=== PATIENT | female | born 1985 | race Caucasian/White ===

== ENCOUNTER 2018-07-18 05:33 | Inpatient (IN) ==
--- NOTE | 2018-07-13 08:55 | PAT Medication Instructions ---
Medication Instructions Date of Service July 13, 2018 Home Medications [id number] fumarate-FA 1 tab PO QAM ferrous sulfate [iron] 325 mg PO DAILY DO NOT take the morning of surgery [id number] fumarate-FA 1 tab PO QAM ferrous sulfate [iron] 325 mg PO DAILY Other Notes If you have any questions please call us at [phone] or [phone] or [phone] or [phone]
--- NOTE | 2018-07-13 09:49 | Anesthesiology Consultation ---
Date of Service July 13, 2018 Assessment & Plan (1) Encounter for pre-operative examination: Plan: No labs to be drawn at PAT per OB; labs to be drawn AM DOS. Chart Review Chart Review: Acceptable Risk for Surgery (PENDING LABS AM DOS) and Patient seen in Pre Admission Testing Teaching & Discussion Pre-Anesthesia Teaching/Discussion Notes: Instructed NPO after midnight before surgery,except medications with 15 cc of water. Medication instructions provided according to the [facility] guidelines. History Surgery Operation Date: 07/18/18 07:30 Proposed Procedures p Section in LD - Benja Wright MD Height/Weight Height: 6 ft Weight: 107.4 kg Allergies Allergy/AdvReac Type Severity Reaction Status Date / Time nut - unspecified Allergy Severe Anaphylaxis Verified 06/30/18 15:11 morphine AdvReac Nausea Verified 07/13/18 10:19 Medications Home Medications Medication Instructions Recorded Confirmed Last Taken [id number] fumarate-FA 1 tab PO QAM 06/30/18 06/30/18 Unknown [] ferrous sulfate [iron] 325 mg PO DAILY 06/30/18 06/30/18 Unknown Past Medical History Medical History Anemia IRON DEFICIENCY Kidney stones Past Surgical History Surgical History History of section 07/02 BREECH PRESENTATION= SAB WITH GOOD PAIN CONTROL History of lithotripsy Past Anesthesia History No Hx of Anesthesia Complications and No Family Hx of Anesthesia Complications History of PONV No Motion Sickness Screening History of Motion Sickness: Yes (OCCASOINALLY) Social History Smoking Status: Former smoker tobacco type: cigarettes Do You Dip or Chew Tobacco: No Smoking End Date: QUIT 2014 Hx Alcohol Use: No Hx Substance Use: No substance use type: does not use Exercise / Class Metabolic Activity III < 4 Walking/Shop/Light housework Review of Systems Acid reflux ( related). Patient denies chest pain, shortness of breath , cough, wheezing, palpitations. Physical Exam Vital Signs VITALS BP 111/76 P 80 TEMP97.8 SP02 97%RA RESP 18 PHYSICAL Full neck and c-spine range of motion. Full TMJ range of motion. TMD 3.5 finger breaths Mallampati Score 2 Dentition: intact Lungs: clear throughout to auscultation Cardiac: regular rate and rhythm, no murmurs noted Spine: normal Extremities: no edema
--- NOTE | 2018-07-17 20:11 | History and Physical Report ---
DATE OF ADMISSION: 07/18/2018 REASON FOR ADMISSION: Planned repeat section. HISTORY OF PRESENT ILLNESS: Edward is a 33-year-old G3, P2-0-0-2 with surgery planned at 39 weeks 2 days gestational age with an DAWNA of 07/23/2018. The patient presents to labor and delivery for planned repeat section with history of x1. At the time of evaluation for preoperative planning, the patient was denying regular contractions, bleeding, or leakage of fluids and reporting normal movement. COURSE: The patient presented for care at approximately 17 weeks' gestational age. She has been normotensive throughout. She has had negative proteinuria and negative glucosuria. Total weight gain for the has been 24 pounds. Her management options for delivery were discussed including a trial of labor after versus repeat section. The patient opted for repeat section and tubal ligation. COMPLICATIONS: 1. History of x1. 2. Desired permanent sterilization. LABORATORIES: Blood type A positive, antibody screen negative, rubella immune, RPR nonreactive, hep B surface antigen negative, HIV negative, chlamydia negative, gonorrhea negative. Cystic fibrosis screening negative. Both 16- and 18-week glucose screening normal. There was noted to be an anatomy scan, which was within normal limits. Cell free DNA was normal. GBS is negative. PAST MEDICAL HISTORY: 1. Depression, anxiety. 2. History of kidney stones. 3. Asthma. PAST SURGICAL HISTORY: 1. x1. 2. Lithotripsy. FAMILY HISTORY: Noncontributory. ALLERGIES: The patient denies any medication allergies. MEDICATIONS: 1. vitamins. 2. Iron. 3. Tylenol. PHYSICAL EXAMINATION: VITAL SIGNS: Blood pressure 110/80. GENERAL: Edward is well appearing in no acute distress, alert, oriented x3. HEART: Showed regular rate and rhythm. LUNGS: Showed no labored breathing. ABDOMEN: Soft, nontender, gravid with a fundal height of 39 cm. Fetus is cephalic by Maulik's. heart rate was obtained at 140 beats per minute. LOWER EXTREMITIES: Showed mild trace edema but otherwise unremarkable. ASSESSMENT: Edward is a 33-year-old 3, para 2-0-0-2, presents for scheduled repeat section with history of one prior section. PLAN: 1. Fetus reassuring today on exam. 2. Repeat section. consents were reviewed and signed in the clinic today. Risks of surgery were discussed in detail. The patient does desire bilateral tubal ligation. It was discussed that if a tubal ligation was done that she would have to assume she would not be able to have any more children, which the patient was desiring. We did also, however, discuss that there is still a risk of being approximately 1 in 400 per year as well as risk of ectopic . consents were reviewed and signed. 3. Vitals within normal limits. 4. GBS negative. 5. A hemorrhage risk considered moderate risk. We will collect CBC, type and screen on admission.
[2018-07-18] MEDS ORDERED: LACTATED RINGER'S 1,000 ML IV SCH ×2 (06:00→20:00)
[2018-07-18] MEDS ORDERED: CEFAZOLIN 3,000 MG in DEXTROSE 5% 50 ML IV SCH (06:00)
[2018-07-18 06:22] LABS: Basophils # (auto) 0.02 K/uL (0-0.2); Basophils % (auto) 0.2 %; Eosinophils # (auto) 0.12 K/uL (0-0.5); Eosinophils % (auto) 1.4 %; Immature Granulocytes # (auto) 0.08 K/uL (0.00-0.02); Immature Granulocytes % (auto) 0.9 %; Lymphocytes # (auto) 1.94 K/uL (1.2-3.4); Lymphocytes % (auto) 22.9 %; Mean Corpuscular Hgb Conc 32.4 g/dL (32-36); Mean Corpuscular Volume 84.5 fL (80-100); Mean Platelet Volume 10.9 fL (7.4-10.4); Monocytes # (auto) 1.08 K/uL (0.11-0.59); Monocytes % (auto) 12.8 %; Neutrophils # (auto) 5.23 K/uL (1.4-6.5); Neutrophils % (auto) 61.8 %; Platelet Count 237 K/uL (130-400); RDW Coefficient of Variation 14.4 % (11.5-14.5); RDW Standard Deviation 44.6 fL (36.4-46.3); Red Blood Count 4.38 M/uL (4.2-5.4); White Blood Count 8.47 K/uL (4.8-10.8)
[2018-07-18] MEDS ORDERED: OXYTOCIN 10 UNITS/ML VIAL ONE (06:59)
[2018-07-18] MEDS ORDERED: fentaNYL citrate 100 MCG/2 ML VIAL ONE (06:59)
--- NOTE | 2018-07-18 07:20 | History & Physical Bridge Note ---
Date of Service July 18, 2018 History & Physical Bridge Note I have examined the patient, reviewed the History & Physical and in the interval since the performance of the History & Physical I have noted the following changes of clinical significance: no changes noted
[2018-07-18] MEDS ORDERED: CITRIC ACID/SODIUM CITRATE 15 ML UDC PO ONE (07:45)
[2018-07-18] MEDS ORDERED: fentaNYL citrate 100 MCG/2 ML VIAL IV PRN (07:58)
[2018-07-18] MEDS ORDERED: ONDANSETRON INJ 2 MG/ML 2 ML VIAL IV PRN ×2 (07:58→08:34)
[2018-07-18] MEDS ORDERED: ePHEDrine sulfate 50 MG/ML AMP IV PRN (07:58)
[2018-07-18] MEDS ORDERED: ATROPINE SULFATE 0.1 MG/ML 10ML SYR IV PRN (07:58)
[2018-07-18] MEDS ORDERED: KETOROLAC 30 MG/ML VIAL IV PRN (07:58)
[2018-07-18] MEDS ORDERED: PHENYLEPHRINE 100MCG/ML 5ML SYR ONE (08:27)
[2018-07-18] MEDS ORDERED: MAGNESIUM HYDROXIDE SUSP 30 ML UDC PO PRN (08:34)
[2018-07-18] MEDS ORDERED: SENNA 8.6 MG TAB PO PRN (08:34)
[2018-07-18] MEDS ORDERED: DiphenhydrAMINE HCL 50 MG/ML VIAL IV PRN (08:34)
[2018-07-18] MEDS ORDERED: PROMETHAZINE HCL 25 MG in SODIUM CHLORIDE 0.9% 50 ML IV PRN (08:34)
[2018-07-18] MEDS ORDERED: HYDROCORTISONE ACETATE 25 MG SUPP PR PRN (08:34)
[2018-07-18] MEDS ORDERED: BENZOCAINE 20% AER SPR 82.5 GM CAN EXT PRN (08:34)
[2018-07-18] MEDS ORDERED: SUPERCREAM 0.870% 15 GM JAR EXT PRN (08:34)
[2018-07-18] MEDS ORDERED: OXYTOCIN 20 UNITS in LACTATED RINGER'S 1,000 ML IV SCH (08:45)
--- NOTE | 2018-07-18 08:52 | Post Operative Brief Note ---
Immediate Post Op Note v1 Date of Surgery July 18, 2018 Pre & Post Diagnosis Operation Date: 07/18/18 07:30 Pre-Op Diagnosis: Normal term with a history or prior Section, pt desires repeat Section with permanent sterilization. Post-Op Diagnosis: Normal term with a history or prior Section, pt desires repeat Section with permanent sterilization. EBL 600ml Complications: None Procedure Operation Date: 07/18/18 07:30 Actual Procedures p Section in LD - Benja Wright MD Surgeon Benja Wright MD [employer] Clerk Dr Del Cid PGY1 Estimated Blood Loss 600 Findings Consistent with Post-Op Diagnosis Drains Helms Catheter
[2018-07-18] MEDS: DOCUSATE SODIUM 100 MG CAP PO SCH ×2 (10:02→21:21)
[2018-07-18] MEDS: FERROUS SULFATE 325 MG TAB PO SCH (10:02)
[2018-07-18] MEDS: SIMETHICONE 80 MG CHEW PO SCH ×4 (10:02→21:21)
[2018-07-18] MEDS: PRENATAL VITAMIN 1 TAB PO SCH (10:02)
--- NOTE | 2018-07-18 10:06 | Anesthesiology Progress Note ---
Date of Service July 18, 2018 Anesthesia Post Procedure Vital Signs Vital Signs: Temp Pulse Resp BP Pulse Ox 07/18/18 10:02 68 96 07/18/18 09:58 142 H 127/78 07/18/18 09:57 59 L 99 07/18/18 09:52 69 100 07/18/18 09:49 75 127/85 07/18/18 09:48 18 07/18/18 09:47 69 100 07/18/18 09:42 75 99 07/18/18 09:40 83 119/65 07/18/18 09:38 18 07/18/18 09:37 89 99 07/18/18 09:32 89 99 07/18/18 09:29 78 128/69 07/18/18 09:28 18 07/18/18 09:27 79 99 07/18/18 09:22 73 100 07/18/18 09:18 78 16 122/68 07/18/18 09:17 73 100 07/18/18 09:11 73 100 07/18/18 09:08 16 07/18/18 09:06 78 99 07/18/18 09:01 76 100 07/18/18 08:58 97.7 F 65 18 112/60 07/18/18 08:56 75 100 07/18/18 05:46 98.4 F 88 18 132/92 07/18/18 05:45 97.3 F L 18 Pain Intensity Medial Abdomen: Pain Intensity: 1 Notes Mental Status: alert / awake / arousable and participated in evaluation Nausea / Vomiting: adequately controlled Pain: adequately controlled Airway Patency, RR, SpO2: stable & adequate BP & HR: stable & adequate Hydration State: stable & adequate Neuraxial Anesthesia: was administered and sensory block is resolving Anesthetic Complications: no major complications apparent and Pt Satisfied with anesthetic care
[2018-07-18] MEDS: KETOROLAC 30 MG/ML VIAL IV PRN ×2 (10:08→18:43)
[2018-07-18] MEDS: HYDROmorphone INJ 1 MG/ML SYRINGE IV PRN ×2 (12:23→14:26)
[2018-07-18] MEDS ORDERED: ACETAMINOPHEN 1,000 MG/100 ML VIAL IV STA (12:57)
--- NOTE | 2018-07-18 13:16 | Operative Report ---
DATE OF OPERATION: 07/18/2018 OPERATIVE PROCEDURE: Repeat low transverse section with bilateral tubal ligation. SURGEON: Benja Wright MD INVESTIGATIVE AGENT: Dr. Maria Fernanda Del Cid, PGY-1 PREOPERATIVE DIAGNOSES: 1. Single intrauterine at 39 weeks 2 days gestational age. 2. History of x1 desiring repeat. 3. Desired permanent sterilization. POSTOPERATIVE DIAGNOSES: 1. Single intrauterine at 39 weeks 2 days gestational age. 2. History of x1 desiring repeat. 3. Desired permanent sterilization. 4. Delivered. ESTIMATED BLOOD LOSS: 600 mL. DRAINS: None. FLUIDS: Continuous lactated ringer. URINE OUTPUT: 300 mL via catheter. COMPLICATIONS: None. FINDINGS: Viable male with Apgars of 8 and 9 and a weight of 10 pounds 11 ounces. INDICATIONS: Edward is a 33-year-old G3, P2-0-0-2 admitted at 39 weeks 2 days gestational age with DAWNA of 07/23/2018. The patient presented for scheduled repeat section, bilateral tubal ligation. Consents were reviewed and signed in clinic and risks were once again reviewed prior to the procedure. DESCRIPTION OF PROCEDURE: The patient was taken to the operating room after consents were ensured. Upon presentation, she was properly identified. Spinal anesthesia was obtained without difficulty. The patient was then placed in dorsal supine position with left lateral tilt. The patient was then prepped and draped in the normal sterile fashion. A preprocedural timeout was performed. Proper anesthetic levels were ensured prior to initiation of the case, after which a Pfannenstiel incision was made at the location of the prior incision with a knife. This was carried down to underlying fascia with the Bovie. The fascia was then nicked at the midline with the knife. The fascial incision was then extended laterally in each direction with pickups and Dorsey scissors. The superior aspect of the fascia was grasped with Kochhitesh x2, elevated off the underlying rectus muscles using blunt dissection. The inferior aspect of the fascia was then grasped with Kochers x2 and elevated off the underlying rectus muscles using blunt dissection and Dorsey scissors. The midline was then entered bluntly and was placed on stretch to provide adequate room for delivery. A bladder blade was placed and the bladder flap was created. A low transverse uterine incision was then made with a knife and the uterine cavity was entered bluntly. Adequate room for delivery was created bluntly. The head of the was noted to be in cephalic position and was delivered to the hysterotomy without difficulty. The body and shoulders quickly followed. The was noted to be vigorous upon delivery and was suction bulb on the surgical field and a 1-minute delayed cord clamping was initiated. The cord was then double clamped and cut and the was handed off to waiting nursery staff. Cord blood was then obtained. Attention was then turned to delivery of the placenta which was delivered intact with 3-vessel cord, with uterine massage and cord traction. Uterus was then exteriorized, was wrapped in a wet lap and several passes were made inside to remove any remaining membranes. A bladder blade was then replaced and the hysterotomy was closed with 0 Vicryl continuous running locked suture. There was noted to be excellent hemostasis and the tubal portion of the case was initiated. A modified Soledad tubal ligation was performed bilaterally with tubal segments sent to pathology for evaluation. The hysterotomy was then reinspected and noted to be hemostatic. Posterior cul-de-sac was cleaned of clots and debris, and the uterus returned to maternal abdomen. The right and left pericolic gutters were cleaned of clots and debris. Hysterotomy was reinspected and noted to be hemostatic. The fascial and muscle layers were inspected and noted to be hemostatic. The fascia was then closed with 0 Vicryl in continuous running suture. The subcutaneous layers were inspected and noted to be hemostatic and were once again reapproximated with plain in 5 interrupted stitch. The skin was reapproximated with 3-0 Vicryl on a Kj needle. Needle, sponge and instrument counts were correct at the completion of the case. I attest to the content of the Intraoperative Record and any orders documented therein. Any exception s are noted below.
[2018-07-18] MEDS: OXYCODONE/ACETAMINOPHEN 5mg/325mg TAB PO PRN (23:07)
[2018-07-18] MEDS: IBUPROFEN 600 MG TAB PO PRN (23:07)
[2018-07-19] MEDS: IBUPROFEN 600 MG TAB PO PRN ×4 (05:21→19:20)
[2018-07-19] MEDS: OXYCODONE/ACETAMINOPHEN 5mg/325mg TAB PO PRN ×4 (05:22→19:19)
--- NOTE | 2018-07-19 06:49 | Obstetrical Progress Note ---
Date of Service <Maria Fernanda Del Cid MD - Last Filed: 07/19/18 06:53> July 19, 2018 Assessment & Plan <Maria Fernanda Del Cid MD - Last Filed: 07/19/18 06:53> (1) Delivery by section of full-term infant: 33yo at 39.2weeks for repeat with bilateral tubal ligation. Post-op Day 1 -Routine care: -ambulation as tolerated -Diet advanced with hydration -Baez removal -Pain control Subjective <Maria Fernanda Del Cid MD - Last Filed: 07/19/18 06:53> Ambulation: ambulating normally Voiding: baez catheter in place Passing Gas:: Yes Diet Tolerance:: regular diet Lochia:: Moderate Feeding Type:: breast feeding Current Pain Level(1-10): 6 Respiratory: no dyspnea Cardiovascular: no chest pain, no palpitations, no lightheadedness and no calf pain Gastrointestinal: no nausea and no vomiting Neurologic: no headache(s) Physical Exam <Maria Fernanda Del Cid MD - Last Filed: 07/19/18 06:53> Vital Signs (Past 24 Hours) Last Vital Signs Temp 36.7 C 07/19/18 04:30 Pulse 90 07/19/18 04:30 Resp 18 07/19/18 04:30 BP 115/72 07/19/18 04:30 Pulse Ox 94 07/18/18 15:11 Respiratory normal respiratory effort, lungs clear to auscultation Cardiovascular RRR, no murmur, no edema Gastrointestinal (Abdomen) Inspection/Auscultation: + abdominal surgical incision (clean bandage, no leakage of fluid) Results & Data <Maria Fernanda Del Cid MD - Last Filed: 07/19/18 06:53> Laboratory Results Laboratory Results - last 24 hr 07/18/18 05:50 Blood Type A Positive Antibody Screen NEGATIVE Medications Administered Home Medications [id number] fumarate-FA [] 1 tab PO QAM 06/30/18 [History Confirmed 07/18/18] ferrous sulfate [iron] 325 mg PO DAILY 06/30/18 [History Confirmed 07/18/18] Active Medications Benzocaine (Dermoplast Pain Relieving [place]) 1 appln EXT UD PRN PRN Reason: use on skin as needed Stop: 08/17/18 08:33 Bisacodyl (Dulcolax) 5 mg PO 2000 DANIELLE Stop: 07/19/18 20:01 Bisacodyl (Dulcolax) 10 mg IN PRN PRN PRN Reason: Constipation Stop: 08/19/18 08:33 Cocaine HCl (Supercream 0.870%) 1 gm EXT UD PRN PRN Reason: hemmorrhoidal inflammation Stop: 08/01/18 08:33 Diphenhydramine HCl (Benadryl) 25 mg IV QID PRN PRN Reason: Itching Stop: 08/17/18 08:33 Diphenhydramine HCl (Benadryl Capsule) 25 mg PO QID PRN PRN Reason: Itching Stop: 08/17/18 08:33 Diphtheria/Pertussis/Tetanus Vacc (Adacel) 0.5 ml IM .ONCE ONE Stop: 07/19/18 09:01 Docusate Sodium (Colace) 100 mg PO BID [facility] Stop: 08/17/18 08:59 Last Admin: 07/18/18 21:21 Dose: 100 mg Ferrous Sulfate (Feosol) 325 mg PO QAM DANIELLE Stop: 08/17/18 08:59 Last Admin: 07/18/18 10:02 Dose: Not Given Hydrocortisone (Anusol Hc) 25 mg IN BID PRN PRN Reason: Hemorrhoids Stop: 08/17/18 08:33 Hydromorphone HCl (Dilaudid) 1 mg IV Q30M PRN PRN Reason: Pain Stop: 07/19/18 08:48 Last Admin: 07/18/18 14:26 Dose: 1 mg Promethazine HCl 25 mg/ Sodium (Chloride) 51 mls @ 204 mls/hr IV Q4H PRN PRN Reason: Nausea And Vomiting Stop: 08/17/18 08:33 Lactated Ringer's (Lr) 1,000 mls @ 125 mls/hr IV .Q8H DANIELLE Stop: 08/17/18 19:59 Last Infusion: 07/19/18 03:30 Dose: Infused Ibuprofen (Motrin) 600 mg PO Q4H PRN PRN Reason: Pain Stop: 08/17/18 08:33 Last Admin: 07/19/18 05:21 Dose: 600 mg Ketorolac Tromethamine (Toradol) 30 mg IV Q6H PRN PRN Reason: Pain Stop: 07/23/18 08:33 Last Admin: 07/18/18 18:43 Dose: 30 mg Magnesium Hydroxide (Milk Of Magnesia) 30 ml PO HS PRN PRN Reason: Constipation Stop: 08/17/18 08:33 Ondansetron HCl (Zofran) 4 mg IV Q4H PRN PRN Reason: Nausea And Vomiting Stop: 08/17/18 08:33 Oxycodone/Acetaminophen (Percocet 5mg/325mg) 1 - 2 tab PO Q4H PRN PRN Reason: Pain Stop: 08/01/18 08:33 Last Admin: 07/19/18 05:22 Dose: 1 tab Prenat Multivit/[place] Buffer/Iron/Folic Ac ( Vitamin) 1 tab PO QAM [facility] Stop: 08/17/18 08:59 Last Admin: 07/18/18 10:02 Dose: Not Given Sennosides (Senokot) 17.2 mg PO HS PRN PRN Reason: Constipation Stop: 08/17/18 08:33 Simethicone (Mylicon) 80 mg PO QID [facility] Stop: 08/17/18 08:59 Last Admin: 07/18/18 21:21 Dose: 80 mg <Taurus Rich Jr, MD, FACOG - Last Filed: 07/19/18 07:30> Co-Signing Physician Notes Resident Physician Supervision Note: I was present with Dr. Del Cid during the history and exam. I discussed the case with the resident and agree with the findings and plan as documented in the note. Any exceptions or clarifications are listed here: Dressing removed, incision intact, encouraged ambulation. Documented By: Taurus Rich Jr, MD, FACOG
[2018-07-19 07:17] LABS: Basophils # (auto) 0.01 K/uL (0-0.2); Basophils % (auto) 0.1 %; Eosinophils # (auto) 0.07 K/uL (0-0.5); Eosinophils % (auto) 0.6 %; Hematocrit (blood only) 31.4 % (37-47); Hemoglobin 10.1 g/dL (12.0-16.0); Immature Granulocytes # (auto) 0.08 K/uL (0.00-0.02); Immature Granulocytes % (auto) 0.6 %; Lymphocytes # (auto) 1.45 K/uL (1.2-3.4); Lymphocytes % (auto) 11.7 %; Mean Corpuscular Hgb Conc 32.2 g/dL (32-36); Mean Corpuscular Volume 84.9 fL (80-100); Mean Platelet Volume 10.4 fL (7.4-10.4); Monocytes # (auto) 1.25 K/uL (0.11-0.59); Monocytes % (auto) 10.1 %; Neutrophils # (auto) 9.55 K/uL (1.4-6.5); Neutrophils % (auto) 76.9 %; Platelet Count 197 K/uL (130-400); RDW Coefficient of Variation 14.6 % (11.5-14.5); RDW Standard Deviation 45.3 fL (36.4-46.3); White Blood Count 12.41 K/uL (4.8-10.8)
[2018-07-19] MEDS: SIMETHICONE 80 MG CHEW PO SCH ×4 (08:33→19:23)
[2018-07-19] MEDS: FERROUS SULFATE 325 MG TAB PO SCH (08:33)
[2018-07-19] MEDS: PRENATAL VITAMIN 1 TAB PO SCH (08:33)
[2018-07-19] MEDS: DOCUSATE SODIUM 100 MG CAP PO SCH ×2 (08:33→19:20)
[2018-07-19] MEDS ORDERED: DIPHTHERIA/TETANUS/PERTUSSIS 0.5 ML SYR/VIAL IM ONE (09:00)
[2018-07-19] MEDS ORDERED: BISACODYL 5 MG TABEC PO SCH (20:00)
[2018-07-20] MEDS: OXYCODONE/ACETAMINOPHEN 5mg/325mg TAB PO PRN ×4 (03:31→23:16)
[2018-07-20] MEDS: IBUPROFEN 600 MG TAB PO PRN ×4 (03:31→23:15)
[2018-07-20 06:25] LABS: Hematocrit (blood only) 32.2 % (37-47); Hemoglobin 10.1 g/dL (12.0-16.0)
--- NOTE | 2018-07-20 07:02 | Obstetrical Progress Note ---
Date of Service <Maria Fernanda Del Cid MD - Last Filed: 07/20/18 07:02> July 20, 2018 Assessment & Plan <Maria Fernanda Del Cid MD - Last Filed: 07/20/18 07:02> (1) Delivery by section of full-term infant: 33yo at 39.2weeks for repeat with bilateral tubal ligation. Post-op Day 2 Desires discharge. Fells well enough to go home Instructions reviewed. Subjective <Maria Fernanda Del Cid MD - Last Filed: 07/20/18 07:02> Ambulation: ambulating normally Voiding: no voiding problems Passing Gas:: Yes Diet Tolerance:: regular diet Lochia:: Moderate Feeding Type:: breast feeding Current Pain Level(1-10): 4 Respiratory: no dyspnea Cardiovascular: no chest pain, no palpitations, no lightheadedness, no edema and no calf pain Gastrointestinal: no nausea and no vomiting Genitourinary (female): no dysuria Neurologic: no headache(s) Physical Exam <Maria Fernanda Del Cid MD - Last Filed: 07/20/18 07:02> Vital Signs (Past 24 Hours) Last Vital Signs Temp 36.3 C L 07/19/18 23:30 Pulse 105 H 07/19/18 23:30 Resp 16 07/19/18 23:30 BP 118/81 07/19/18 23:30 Pulse Ox 99 07/19/18 23:30 Respiratory normal respiratory effort, lungs clear to auscultation Cardiovascular RRR, no murmur, no edema Gastrointestinal (Abdomen) Inspection/Auscultation: + abdominal surgical incision (clean/dry/intact) Genitourinary OB Exam Abdomen: + fundal height Fundus: + firm; not tender and not boggy Results & Data <Maria Fernanda Del Cid MD - Last Filed: 07/20/18 07:02> Laboratory Results Laboratory Results - last 24 hr 07/19/18 07/20/18 07:05 06:05 WBC 12.41 H RBC 3.70 L Hgb 10.1 L 10.1 L Hct 31.4 L 32.2 L MCV 84.9 MCH 27.3 MCHC 32.2 RDW Std Deviation 45.3 RDW Coeff of Sharmila 14.6 H Plt Count 197 MPV 10.4 Immature Gran % (Auto) 0.6 Neut % (Auto) 76.9 Lymph % (Auto) 11.7 [place] % (Auto) 10.1 Eos % (Auto) 0.6 Baso % (Auto) 0.1 Immature Gran # (Auto) 0.08 H Neut # (Auto) 9.55 H Lymph # (Auto) 1.45 [place] # (Auto) 1.25 H Eos # (Auto) 0.07 Baso # (Auto) 0.01 Medications Administered Home Medications [id number] fumarate-FA [] 1 tab PO QAM 06/30/18 [History Confirmed 07/18/18] ferrous sulfate [iron] 325 mg PO DAILY 06/30/18 [History Confirmed 07/18/18] Active Medications Benzocaine (Dermoplast Pain Relieving [place]) 1 appln EXT UD PRN PRN Reason: use on skin as needed Stop: 08/17/18 08:33 Bisacodyl (Dulcolax) 10 mg [place] PRN PRN PRN Reason: Constipation Stop: 08/19/18 08:33 Cocaine HCl (Supercream 0.870%) 1 gm EXT UD PRN PRN Reason: hemmorrhoidal inflammation Stop: 08/01/18 08:33 Diphenhydramine HCl (Benadryl) 25 mg IV QID PRN PRN Reason: Itching Stop: 08/17/18 08:33 Diphenhydramine HCl (Benadryl Capsule) 25 mg PO QID PRN PRN Reason: Itching Stop: 08/17/18 08:33 Docusate Sodium (Colace) 100 mg PO BID [facility] Stop: 08/17/18 08:59 Last Admin: 07/19/18 19:20 Dose: 100 mg Ferrous Sulfate (Feosol) 325 mg PO QAM DANIELLE Stop: 08/17/18 08:59 Last Admin: 07/19/18 08:33 Dose: 325 mg Hydrocortisone (Anusol Hc) 25 mg [place] BID PRN PRN Reason: Hemorrhoids Stop: 08/17/18 08:33 Promethazine HCl 25 mg/ Sodium (Chloride) 51 mls @ 204 mls/hr IV Q4H PRN PRN Reason: Nausea And Vomiting Stop: 08/17/18 08:33 Lactated Ringer's (Lr) 1,000 mls @ 125 mls/hr IV .Q8H DANIELLE Stop: 08/17/18 19:59 Last Infusion: 07/19/18 03:30 Dose: Infused Ibuprofen (Motrin) 600 mg PO Q4H PRN PRN Reason: Pain Stop: 08/17/18 08:33 Last Admin: 07/20/18 03:31 Dose: 600 mg Ketorolac Tromethamine (Toradol) 30 mg IV Q6H PRN PRN Reason: Pain Stop: 07/23/18 08:33 Last Admin: 07/18/18 18:43 Dose: 30 mg Magnesium Hydroxide (Milk Of Magnesia) 30 ml PO HS PRN PRN Reason: Constipation Stop: 08/17/18 08:33 Ondansetron HCl (Zofran) 4 mg IV Q4H PRN PRN Reason: Nausea And Vomiting Stop: 08/17/18 08:33 Oxycodone/Acetaminophen (Percocet 5mg/325mg) 1 - 2 tab PO Q4H PRN PRN Reason: Pain Stop: 08/01/18 08:33 Last Admin: 07/20/18 03:31 Dose: 1 tab Prenat Multivit/[place]/Iron/Folic Ac ( Vitamin) 1 tab PO QAM [facility] Stop: 08/17/18 08:59 Last Admin: 07/19/18 08:33 Dose: 1 tab Sennosides (Senokot) 17.2 mg PO HS PRN PRN Reason: Constipation Stop: 08/17/18 08:33 Simethicone (Mylicon) 80 mg PO QID [facility] Stop: 08/17/18 08:59 Last Admin: 07/19/18 19:23 Dose: 80 mg <Mahnaz Shafer, - Last Filed: 07/20/18 07:26> Co-Signing Physician Notes I have seen/examined patient. I have read above note performed by resident and I agree with above. Any changes/additions are as follows: POD#2 doing well. Would like to be discharged home. Mahnaz Shafer DO [facility]
[2018-07-20] MEDS ORDERED: BISACODYL 10 MG SUPP PR PRN (08:34)
[2018-07-20] MEDS: DOCUSATE SODIUM 100 MG CAP PO SCH ×2 (09:12→19:40)
[2018-07-20] MEDS: SIMETHICONE 80 MG CHEW PO SCH ×4 (09:13→20:30)
[2018-07-20] MEDS: FERROUS SULFATE 325 MG TAB PO SCH (09:13)
[2018-07-20] MEDS: PRENATAL VITAMIN 1 TAB PO SCH (09:13)
[2018-07-21] MEDS: IBUPROFEN 600 MG TAB PO PRN ×3 (04:37→13:50)
[2018-07-21] MEDS: OXYCODONE/ACETAMINOPHEN 5mg/325mg TAB PO PRN ×3 (04:38→13:50)
--- NOTE | 2018-07-21 07:57 | Obstetrical Progress Note ---
Date of Service <Maria Fernanda Del Cid MD - Last Filed: 07/21/18 08:04> July 21, 2018 Assessment & Plan <Maria Fernanda Del Cid MD - Last Filed: 07/21/18 08:04> (1) Delivery by section of full-term infant: 33yo at 39.2weeks for repeat with bilateral tubal ligation. Post-op Day 2 Discharge today pending baby's weight gain - Instructions reviewed Subjective <Maria Fernanda Del Cid MD - Last Filed: 07/21/18 08:04> Ambulation: ambulating normally Voiding: no voiding problems Passing Gas:: Yes Diet Tolerance:: regular diet Lochia:: Moderate Feeding Type:: breast feeding Current Pain Level(1-10): 3 Respiratory: no dyspnea Cardiovascular: no chest pain, no palpitations, no lightheadedness, no edema and no calf pain Gastrointestinal: no nausea and no vomiting Genitourinary (female): no dysuria Neurologic: no headache(s) Physical Exam <Maria Fernanda Del Cid MD - Last Filed: 07/21/18 08:04> Vital Signs (Past 24 Hours) Last Vital Signs Temp 36.7 C 07/20/18 23:10 Pulse 94 H 07/20/18 23:10 Resp 16 07/20/18 23:10 BP 128/81 07/20/18 23:10 Pulse Ox 96 07/20/18 23:10 Respiratory normal respiratory effort, lungs clear to auscultation Cardiovascular RRR, no murmur, no edema Extremities: no calf tenderness and no pedal edema Genitourinary OB Exam Abdomen: + fundal height Fundus: + firm; not tender and not boggy Results & Data <Maria Fernanda Del Cid MD - Last Filed: 07/21/18 08:04> Medications Administered Home Medications [id number] [] 1 tab PO QAM 06/30/18 [History Confirmed 07/18/18] ferrous sulfate [iron] 325 mg PO DAILY 06/30/18 [History Confirmed 07/18/18] breast pump #1 ea 07/20/18 [Rx] oxycodone-acetaminophen [Percocet] 1 tab PO Q6H 7 Days #28 tab 07/20/18 [Rx] Active Medications Benzocaine (Dermoplast Pain Relieving [place]) 1 appln EXT UD PRN PRN Reason: use on skin as needed Stop: 08/17/18 08:33 Bisacodyl (Dulcolax) 10 mg NC PRN PRN PRN Reason: Constipation Stop: 08/19/18 08:33 Cocaine HCl (Supercream 0.870%) 1 gm EXT UD PRN PRN Reason: hemmorrhoidal inflammation Stop: 08/01/18 08:33 Diphenhydramine HCl (Benadryl) 25 mg IV QID PRN PRN Reason: Itching Stop: 08/17/18 08:33 Diphenhydramine HCl (Benadryl Capsule) 25 mg PO QID PRN PRN Reason: Itching Stop: 08/17/18 08:33 Docusate Sodium (Colace) 100 mg PO BID DANIELLE Stop: 08/17/18 08:59 Last Admin: 07/20/18 19:40 Dose: 100 mg Ferrous Sulfate (Feosol) 325 mg PO QAM DANIELLE Stop: 08/17/18 08:59 Last Admin: 07/20/18 09:13 Dose: 325 mg Hydrocortisone (Anusol Hc) 25 mg NC BID PRN PRN Reason: Hemorrhoids Stop: 08/17/18 08:33 Promethazine HCl 25 mg/ Sodium (Chloride) 51 mls @ 204 mls/hr IV Q4H PRN PRN Reason: Nausea And Vomiting Stop: 08/17/18 08:33 Lactated Ringer's (Lr) 1,000 mls @ 125 mls/hr IV .Q8H DANIELLE Stop: 08/17/18 19:59 Last Infusion: 07/19/18 03:30 Dose: Infused Ibuprofen (Motrin) 600 mg PO Q4H PRN PRN Reason: Pain Stop: 08/17/18 08:33 Last Admin: 07/21/18 04:37 Dose: 600 mg Ketorolac Tromethamine (Toradol) 30 mg IV Q6H PRN PRN Reason: Pain Stop: 07/23/18 08:33 Last Admin: 07/18/18 18:43 Dose: 30 mg Magnesium Hydroxide (Milk Of Magnesia) 30 ml PO HS PRN PRN Reason: Constipation Stop: 08/17/18 08:33 Ondansetron HCl (Zofran) 4 mg IV Q4H PRN PRN Reason: Nausea And Vomiting Stop: 08/17/18 08:33 Oxycodone/Acetaminophen (Percocet 5mg/325mg) 1 - 2 tab PO Q4H PRN PRN Reason: Pain Stop: 08/01/18 08:33 Last Admin: 07/21/18 04:38 Dose: 1 tab Prenat Multivit/Galax/Iron/Folic Ac ( Vitamin) 1 tab PO QAM DANIELLE Stop: 08/17/18 08:59 Last Admin: 07/20/18 09:13 Dose: 1 tab Sennosides (Senokot) 17.2 mg PO HS PRN PRN Reason: Constipation Stop: 08/17/18 08:33 Simethicone (Mylicon) 80 mg PO QID [facility] Stop: 08/17/18 08:59 Last Admin: 07/20/18 20:30 Dose: 80 mg <Kelli Hansen MD, FACOG - Last Filed: 07/21/18 08:17> Co-Signing Physician Notes Resident Physician Supervision Note: I was present with Dr. Del Cid during the history and exam. I discussed the case with the resident and agree with the findings and plan as documented in the note. Any exceptions or clarifications are listed here: Doing well. No complaints. Waiting to see about baby and wants to go home if baby going home. Apparently won't know until afternoon. Continues to feed and supplement. Instructions reviewed and plan for 6 wks pp check. Documented By: Kelli Hansen MD, FACOG
[2018-07-21] MEDS: PRENATAL VITAMIN 1 TAB PO SCH (09:48)
[2018-07-21] MEDS: DOCUSATE SODIUM 100 MG CAP PO SCH (09:48)
[2018-07-21] MEDS: FERROUS SULFATE 325 MG TAB PO SCH (09:49)
[2018-07-21] MEDS: SIMETHICONE 80 MG CHEW PO SCH ×2 (09:49→11:27)
--- NOTE | 2018-07-23 09:04 | Discharge Summary ---
PROCEDURES: While admitted, repeat low transverse section with bilateral tubal ligation. ADMITTING AND SURGICAL ATTENDING: Benja Wright MD HOSPITAL COURSE: The patient was admitted to labor and delivery for planned repeat section with bilateral tubal ligation. Consents were previously reviewed and signed in clinic. At time of admission, the patient was doing well. The above-mentioned procedures were performed without complication. The patient remained in hospital for 2 days and was discharged home in stable condition. There were no additional complications during her hospital course. The patient recovered well. Edward will follow up in clinic for 6-week visit or as needed.
== END 2018-07-21 15:45 | disposition home or self-care (01) | DRG 785 ==
LOC: 4S1 05:33 → EDSTATUS 07:30 → 4S2 11:42